=== PATIENT | male | born 1975 | race African-American/Black ===

== ENCOUNTER 2017-06-12 18:08 | Emergency (ER) | payer SELFPAY ==
[~2017-06-12] VITALS: Ht 172.7 cm; Wt 65.8 kg
[~2017-06-12 18:08] MED LIST: ACETAMINOPHEN-H1 TA2 PO; AMOXICILLIN500 MG PO; MOTRIN400 MG PO; VICODIN 5/500 505 MG PO
[2017-06-12 19:07] LABS: BASO % 0.5 % (0.0-1.0); EOS # 0.2 10*3/uL (0.0-0.4); EOS % 4.1 % (1.0-4.0); HEMATOCRIT 45.3 % (42.0-52.0); HEMOGLOBIN 15.4 g/dl (14.0-18.0); LYMPH # 2.2 10*3/uL (1.3-4.4); MEAN CELL VOLUME 93.2 fl (80.0-94.0); MEAN CORPUSCULAR HGB 31.7 pg (27.0-31.0); MEAN PLATELET VOLUME 7.7 fl (9.6-12.3); MONO # 0.6 10*3/uL (0.1-1.0); MONO % 9.8 % (3.0-9.0); NEUT # 2.7 10*3/uL (2.3-7.9); NEUT % 47.4 % (47.0-73.0); PLATELET COUNT AUTOMATED 305 10*3/uL (130-400); RED BLOOD COUNT 4.86 10*6/uL (4.50-5.90); RED CELL DISTRI WIDTH 12.1 % (0-14.5); WHITE BLOOD COUNT 5.8 10*3/uL (4.8-10.8)
[2017-06-12 19:24] LABS: ALBUMIN 3.5 gm/dl (3.1-4.5); ALKALINE PHOSPHATASE 72 U/L (45-117); BILIRUBIN, TOTAL 0.3 mg/dl (0.2-1.0); BUN 19 mg/dl (7-24); CARBON DIOXIDE 30 mmol/L (21-32); CHLORIDE 108 mmol/L (98-107); EST GLOM FILT AFRICAN AMERICAN > 60 ml/min; GLUCOSE 78 mg/dL (65-99); POTASSIUM 4.3 mmol/L (3.5-5.1); SGOT/AST 21 IU/L (3-35); SGPT/ALT 22 U/L (12-78); SODIUM 142 mmol/L (136-145); TOTAL PROTEIN 7.4 gm/dL (6.4-8.2)
[2017-06-12] MEDS ORDERED: MIRALAX POWDER17 G1 PO (20:16)
== END 2017-06-12 20:44 | disposition home or self-care (01) ==
LOC: ED 18:08
PROVIDERS: Nurse Practitioner Family
DX: K59.00 Constipation, unspecified (principal); R10.11 Right upper quadrant pain; F12.10 Cannabis abuse, uncomplicated; F17.200 Nicotine dependence, unspecified, uncomplicated

== ENCOUNTER 2018-05-26 23:02 | Emergency (ER) | payer SELFPAY ==
[~2018-05-26] VITALS: Wt 65.8 kg
[~2018-05-26 23:02] MED LIST changes: +MIRALAX POWDER17 G1 PO
[2018-05-26 23:52] LABS: BASO # 0.1 10*3/uL (0.0-0.1); BASO % 0.9 % (0.0-1.0); EOS # 0.2 10*3/uL (0.0-0.4); HEMATOCRIT 45.2 % (42.0-52.0); HEMOGLOBIN 15.4 g/dl (14.0-18.0); LYMPH # 2.5 10*3/uL (1.3-4.4); LYMPH % 44.7 % (27.0-41.0); MEAN CELL VOLUME 94.2 fl (80.0-94.0); MEAN CORPUSCULAR HGB 32.1 pg (27.0-31.0); MEAN CORPUSCULAR HGB CONC 34.1 g/dl (33.0-37.0); MEAN PLATELET VOLUME 7.6 fl (9.6-12.3); MONO # 0.5 10*3/uL (0.1-1.0); MONO % 9.3 % (3.0-9.0); NEUT # 2.3 10*3/uL (2.3-7.9); NEUT % 40.2 % (47.0-73.0); PLATELET COUNT AUTOMATED 278 10*3/uL (130-400); RED CELL DISTRI WIDTH 11.8 % (0-14.5); WHITE BLOOD COUNT 5.7 10*3/uL (4.8-10.8)
[2018-05-27] LABS: ALBUMIN 3.5 gm/dl (3.1-4.5); ALKALINE PHOSPHATASE 65 U/L (45-117); BUN 9 mg/dl (7-24); CHLORIDE 106 mmol/L (98-107); CREATININE 1.14 mg/dL (0.70-1.30); LIPASE 348 U/L (73-393); POTASSIUM 3.9 mmol/L (3.5-5.1); SGOT/AST 12 IU/L (3-35); SGPT/ALT 18 U/L (12-78); SODIUM 139 mmol/L (136-145); TOTAL PROTEIN 7.2 gm/dL (6.4-8.2)
== END 2018-05-27 01:54 | disposition home or self-care (01) ==
LOC: ED 23:02
PROVIDERS: Student in an Organized Health Care Education/Training Program
DX: R10.9 Unspecified abdominal pain (principal); R11.0 Nausea; F17.200 Nicotine dependence, unspecified, uncomplicated; Z90.49 Acquired absence of other specified parts of digestive tract

== ENCOUNTER 2018-06-10 03:18 | Inpatient (IN) | payer SELFPAY ==
[2018-06-10] VITALS (10 sets, daily range): BP systolic 95–127; BP diastolic 58–83
[~2018-06-10] VITALS: Ht 172.7 cm; Wt 60.4 kg
--- NOTE | ~2018-06-10 | CON ---
[place], [place] REPORT OF CONSULTATION NAME: GARCIA COLBERT UNIT #: [id number] ROOM: 518 DOCTOR: SADAF ROQUE MD BIRTHDATE: [birth year] DOS: 06/13/2018 HISTORY OF PRESENT ILLNESS: A 43-year-old patient who presented with chief complaint of epigastric abdominal pain with radiation to the back, nauseated, dyspepsia. Undergoing investigation. The patient had to be admitted for definitive evaluation. The patient had a panel of blood work done. Lactic acid was normal, white blood cell 6, H and H of 14 and 41. Differential diagnosis normal. INR 1.0. Comprehensive metabolic panel, GFR greater than 60. Liver function test normal. Lipase 486. Troponin normal. Hemoglobin A1c normal. CT scan of the abdomen and pelvic has been done. No evidence of inflammatory process. Ultrasound of the liver, normal right upper quadrant visualization of the gallbladder consistent with cholecystectomy site. The urine culture was negative. PAST MEDICAL HISTORY: Associated with abdominal pain, otherwise no acute history. PAST SURGICAL HISTORY: Cholecystectomy mandible surgery. SOCIAL HISTORY: Smoking, nicotine and marijuana as well. FAMILY HISTORY: Noncontributory. Diabetes and hypertension. ALLERGIES: No known medications. MEDICATIONS: None. REVIEW OF SYSTEMS: HEENT: Denies double vision, blurred vision. RESPIRATORY: Denies acute shortness of breath. CARDIOVASCULAR: Denies acute chest pain. DIGESTIVE SYSTEM: Epigastric abdominal pain, radiation to the back. PHYSICAL EXAMINATION: VITAL SIGNS: Stable. HEENT: Head normocephalic, nontraumatic. Mouth and buccal mucosa benign. NECK: Supple, no thyromegaly, no cervical lymphadenopathy. CHEST: Symmetric anatomy, equal expansion. No wheeze, no rhonchi. HEART: Normal sinus rhythm, no gallop, no murmur. ABDOMEN: Soft. No hepato-organomegaly. Bowel sounds present. Nonspecific epigastric pain. EXTREMITIES: No cyanosis, no pedal edema. NEUROLOGIC: Alert, oriented to time, place, person. IMPRESSION: Epigastric abdominal pain, etiology unknown, ruling out hiatal hernia, ruling out distal esophageal ulcer versus duodenal ulcers. PLAN AND DISCUSSION: We are going to organize an endoscopy of upper GI tract. Labs reviewed, records reviewed. Other adjunctive diagnoses as identified in past medical and surgical history. [place], [place] REPORT OF CONSULTATION NAME: GARCIA COLBERT UNIT #: [id number] ROOM: 518 DOCTOR: JUDE VARGAS,SADAF BIRTHDATE: [birth year] SADAF ROQUE MD CM:CONSTR:REPORT OF CONSULTATION 1252 06/14/18 0043 interface
--- NOTE | ~2018-06-10 | EKG ---
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
--- NOTE | ~2018-06-10 | O ---
[place], [place] OPERATIVE NOTE NAME: GARCIA COLBERT UNIT #: [id number] ROOM: 518 DOCTOR: JUDE VARGAS,SADAF BIRTHDATE: [birth year] DOS: 06/13/2018 INDICATION: The patient has presented with chief complaint of epigastric abdominal pain, radiation of the pain to the back. PROCEDURE: Today's procedure part of investigation is panendoscopy plus biopsy. PREMEDICATION: Versed and propofol. SCOPE: Olympus forward-viewing gastroscope Q10 video. REPORT: After putting the patient in left lateral position and application of lubricant to the scope, the scope was introduced. Thereafter, under direct visualization, advanced through the length of esophagus without difficulty. Gastric pouch was entered. Distal esophagitis so far noticed. Gastritis seen as I advanced the scope toward the antrum. He has a very large antral ulceration about 2.5 cm in its diameter, very deep at the same time and in the periphery of this ulcer are multiple other ulcers. Photograph biopsied. Duodenal patency assured. The patient was extubated, tolerated the procedure well. IMPRESSION: Very large and deeply scarred antral ulcer with multiple other small ulcers ____. PLAN AND DISCUSSION: This patient has to stay on Protonix 40 mg IV b.i.d., sucralfate therapy 2 grams 2 hours before meals and at bedtime. Diet should be limited to full liquid. Clinical reassessment as ulcer therapy in progress. Meanwhile, Gaviscon 15 mL p.c. meals 1 hour. SADAF ROQUE MD CM:OPRECORD:OPERATIVE NOTE 1252 0109 SADAF ROQUE MD 06/14/18 0107 interface
--- NOTE | ~2018-06-10 | PR ---
[place], [place] PROGRESS NOTE NAME: GARCIA COLBERT [facility] #: [id number] UNIT #: [id number] ROOM: 518 DOCTOR: JUDE VARGASSADAF BIRTHDATE: [birth year] DOS: 06/15/2018 GASTROINTESTINAL PROGRESS NOTE HISTORY OF PRESENT ILLNESS: This gentleman has presented with epigastric abdominal pain, endoscopically was evaluated and was found to have a very deeply-punctated ulceration at the antrum and multiple small ulcerations that were superficial at the periphery of the antrum. He has been biopsied and I have talked to Dr. Ruelas of the Pathology Department and apparently there is concern about adenocarcinoma in the tissue and therefore the patient's sample has been sent out for a second opinion. The patient has been on full liquid as well as Protonix and is interested to be discharged and I do not see any obstacle on the way for his discharge since he has been eventless in the hospital. Since it is going to take few days before the data final result of the biopsy is available to us, I have given him an appointment of more than a week in the office. By then, I am hoping to have results available. I have reviewed his CT scan of the abdomen and pelvis. There has not been any evidence of metastasis or infiltration that has been reported. His labs and records have been reviewed. There is no acute drop in his blood count; H and H of 15 and 43, white blood cell 5.4. REVIEW OF SYSTEMS: RESPIRATORY: No shortness of breath. CARDIOVASCULAR: No chest pain. DIGESTIVE SYSTEM: No hematemesis, no hematochezia. No nausea, vomiting, diarrhea. PHYSICAL EXAMINATION: VITAL SIGNS: Stable. HEENT: Head: Normocephalic, nontraumatic. Mouth and buccal mucosa benign. NECK: Supple, no thyromegaly. CHEST: Symmetric anatomy, equal expansion. No wheeze, no rhonchi. HEART: Normal sinus rhythm, no gallop, no murmur. ABDOMEN: Soft. No hepato-organomegaly. Bowel sounds present. No pulsatile mass. EXTREMITIES: No cyanosis, no pedal edema. NEUROLOGIC: Fully alert, oriented to time, place, person. IMPRESSION: Gastric ulcer, suspected for malignancy, status post biopsy. Samples are sent out for a second opinion. If there is any point of concern on the biopsy report and if there is no definitive answer, then I will consider to rebiopsy. Otherwise, I will be convinced once the data is going to be true positive regarding his adenocarcinoma and the ulcer. PLAN AND DISCUSSION: Protonix 40 mg daily, Zofran 4 mg b.i.d. p.r.n. and follow up in office in 1 week. [place], [place] PROGRESS NOTE NAME: GARCIA COLBERT UNIT #: [id number] ROOM: 518 DOCTOR: SADAF ROQUE MD BIRTHDATE: [birth year] SADAF ROQUE MD CM:JOSE [id number] SADAF ROQUE MD 06/15/18 9089 interface
[2018-06-10 03:48] LABS: BILIRUBIN 1+ (NEGATIVE); BLOOD 2+ (NEGATIVE); CLARITY SL CLOUDY (CLEAR); COLOR YELLOW (YELLOW); GLUCOSE NEGATIVE (NEGATIVE); KETONE 2+ (NEGATIVE); LEUKO ESTERASE NEGATIVE (NEGATIVE); NITRITE NEGATIVE (NEGATIVE); PH 5.5 (5.0-9.0); SPECIFIC GRAVITY >= 1.030 (1.005-1.030); UROBILINOGEN 0.2 E.U./dl (0.2-1.0)
[2018-06-10 03:55] LABS: BACTERIA 1+; EPITHELIAL CELLS 0-2; MUCOUS 1+; WBC 0-2 wbc/hpf (0-5)
[2018-06-10 04:27] LABS: BASO % 0.5 % (0.0-1.0); EOS # 0.1 10*3/uL (0.0-0.4); EOS % 2.1 % (1.0-4.0); HEMATOCRIT 41.9 % (42.0-52.0); HEMOGLOBIN 14.3 g/dl (14.0-18.0); LYMPH # 1.4 10*3/uL (1.3-4.4); LYMPH % 22.3 % (27.0-41.0); MEAN CELL VOLUME 93.5 fl (80.0-94.0); MEAN CORPUSCULAR HGB 31.9 pg (27.0-31.0); MEAN CORPUSCULAR HGB CONC 34.1 g/dl (33.0-37.0); MEAN PLATELET VOLUME 7.7 fl (9.6-12.3); MONO # 0.5 10*3/uL (0.1-1.0); MONO % 8.4 % (3.0-9.0); NEUT # 4.2 10*3/uL (2.3-7.9); NEUT % 66.5 % (47.0-73.0); PLATELET COUNT AUTOMATED 293 10*3/uL (130-400); RED BLOOD COUNT 4.48 10*6/uL (4.50-5.90); RED CELL DISTRI WIDTH 11.9 % (0-14.5); WHITE BLOOD COUNT 6.3 10*3/uL (4.8-10.8)
[2018-06-10 04:42] LABS: ALBUMIN 3.4 gm/dl (3.1-4.5); ALKALINE PHOSPHATASE 65 U/L (45-117); BUN 14 mg/dl (7-24); CHLORIDE 108 mmol/L (98-107); CREATININE 1.02 mg/dL (0.70-1.30); LIPASE 486 U/L (73-393); SGOT/AST 15 IU/L (3-35); SGPT/ALT 20 U/L (12-78); SODIUM 139 mmol/L (136-145); TOTAL PROTEIN 7.1 gm/dL (6.4-8.2); TROPONIN I < 0.015 ng/ml (<0.045)
[2018-06-10 05:02] LABS: URINE AMPHETAMINES < 1000 (1000ng/ml); URINE BARBITURATES < 200 (200ng/ml); URINE BENZODIAZEPINES < 200 (200ng/ml); URINE CANNABINOIDS (THC) > 50 (50ng/ml); URINE COCAINE < 300 (300ng/ml); URINE METHADONE < 300 (300ng/ml); URINE OPIATES < 300 (300ng/ml)
[2018-06-10 05:04] LABS: URINE PHENCYCLIDINE < 25 (25ng/ml)
[2018-06-10] MEDS ORDERED: ZANTAC 150150 MG PO (16:29)
[2018-06-11] VITALS: BP 114/76
[2018-06-11 07:07] LABS: BUN 7 mg/dl (7-24); CHLORIDE 107 mmol/L (98-107); CHOLESTEROL 146 mg/dL (<200); CREATININE 0.89 mg/dL (0.70-1.30); HDL CHOLESTEROL 30 mg/dl (40-60); LDL CHOLESTEROL 98 mg/dL (9-159); LIPASE 106 U/L (73-393); PHOSPHOROUS 2.1 mg/dL (2.5-4.9); SODIUM 140 mmol/L (136-145); TRIGLYCERIDES 88 mg/dl (<150); VLDL CHOLESTEROL 18 mg/dL (6-40)
[2018-06-11 07:34] LABS: VITAMIN D, 25-HYDROXY 11.8 ng/mL (30-100)
[2018-06-11 08:00] VITALS: BP 123/77
[2018-06-11 12:00] VITALS: BP 104/64
[2018-06-11 16:00] VITALS: BP 110/78
[2018-06-11 20:00] VITALS: BP 118/63
[2018-06-12] VITALS: BP 123/64
[2018-06-12 08:00] VITALS: BP 117/66
[2018-06-12 12:00] VITALS: BP 118/79
[2018-06-12 16:00] VITALS: BP 121/76
[2018-06-12 20:00] VITALS: BP 126/78
[2018-06-13] VITALS (9 sets, daily range): BP systolic 119–159; BP diastolic 69–86
[2018-06-13 06:10] LABS: BASO % 0.3 % (0.0-1.0); EOS # 0.1 10*3/uL (0.0-0.4); EOS % 0.7 % (1.0-4.0); HEMATOCRIT 37.7 % (42.0-52.0); HEMOGLOBIN 13.4 g/dl (14.0-18.0); LYMPH # 1.1 10*3/uL (1.3-4.4); LYMPH % 16.5 % (27.0-41.0); MEAN CELL VOLUME 90.2 fl (80.0-94.0); MEAN CORPUSCULAR HGB 32.1 pg (27.0-31.0); MEAN CORPUSCULAR HGB CONC 35.5 g/dl (33.0-37.0); MEAN PLATELET VOLUME 8.1 fl (9.6-12.3); MONO # 0.7 10*3/uL (0.1-1.0); MONO % 9.9 % (3.0-9.0); NEUT # 4.8 10*3/uL (2.3-7.9); NEUT % 72.5 % (47.0-73.0); PLATELET COUNT AUTOMATED 285 10*3/uL (130-400); RED BLOOD COUNT 4.18 10*6/uL (4.50-5.90); RED CELL DISTRI WIDTH 11.6 % (0-14.5); WHITE BLOOD COUNT 6.7 10*3/uL (4.8-10.8)
[2018-06-13 06:16] LABS: BUN 7 mg/dl (7-24); CHLORIDE 106 mmol/L (98-107); PHOSPHOROUS 1.8 mg/dL (2.5-4.9); POTASSIUM 3.7 mmol/L (3.5-5.1); SODIUM 140 mmol/L (136-145)
[2018-06-14] VITALS: BP 124/90
[2018-06-14 08:00] VITALS: BP 115/70
[2018-06-14 12:00] VITALS: BP 119/84
[2018-06-14 16:00] VITALS: BP 97/61
[2018-06-14 20:00] VITALS: BP 131/97
[2018-06-15] VITALS: BP 130/83
[2018-06-15 06:16] LABS: BASO % 0.7 % (0.0-1.0); EOS # 0.2 10*3/uL (0.0-0.4); EOS % 3.7 % (1.0-4.0); HEMATOCRIT 43.3 % (42.0-52.0); LYMPH # 1.9 10*3/uL (1.3-4.4); LYMPH % 33.6 % (27.0-41.0); MEAN CELL VOLUME 91.5 fl (80.0-94.0); MEAN CORPUSCULAR HGB 31.7 pg (27.0-31.0); MEAN CORPUSCULAR HGB CONC 34.6 g/dl (33.0-37.0); MONO # 0.7 10*3/uL (0.1-1.0); MONO % 11.7 % (3.0-9.0); NEUT # 2.8 10*3/uL (2.3-7.9); NEUT % 50.1 % (47.0-73.0); PLATELET COUNT AUTOMATED 317 10*3/uL (130-400); RED BLOOD COUNT 4.73 10*6/uL (4.50-5.90); RED CELL DISTRI WIDTH 11.4 % (0-14.5); WHITE BLOOD COUNT 5.7 10*3/uL (4.8-10.8)
[2018-06-15 06:41] LABS: BUN 7 mg/dl (7-24); CHLORIDE 104 mmol/L (98-107); POTASSIUM 3.6 mmol/L (3.5-5.1); SODIUM 141 mmol/L (136-145)
[2018-06-15 06:43] LABS: CREATININE 1.03 mg/dL (0.70-1.30); PHOSPHOROUS 2.4 mg/dL (2.5-4.9)
[2018-06-15 08:00] VITALS: BP 106/76
[2018-06-15 12:00] VITALS: BP 112/81
[2018-06-15 16:00] VITALS: BP 121/83
[2018-06-15] MEDS ORDERED: VITAMIN D5000 UNI1 PO (16:51)
[2018-06-15] MEDS ORDERED: PROTONIX40 MG PO (16:51)
[2018-06-15] MEDS ORDERED: ZOFRAN ODT4 MG SL (16:51)
== END 2018-06-15 17:10 | disposition home or self-care (01) | DRG 384 ==
LOC: ED 03:18 → 5E 05:57 → EDHOLD 05:57 → 5E 06:08
PROVIDERS: Emergency Medicine Emergency Medical Services; Internal Medicine; Student in an Organized Health Care Education/Training Program
PROC: 0DB68ZX Excision of Stomach, Via Natural or Artificial Opening Endoscopic, Diagnostic (ICD-10-PCS; principal; 2018-06-13)
DX: K25.9 Gastric ulcer, unspecified as acute or chronic, without hemorrhage or perforation (principal); E87.8 Other disorders of electrolyte and fluid balance, not elsewhere classified; E83.39 Other disorders of phosphorus metabolism; R74.8 Abnormal levels of other serum enzymes; R00.1 Bradycardia, unspecified; F12.10 Cannabis abuse, uncomplicated; E83.51 Hypocalcemia; R82.4 Acetonuria; R31.9 Hematuria, unspecified; K20.9 Esophagitis, unspecified; K29.70 Gastritis, unspecified, without bleeding; R82.71 Bacteriuria; Z90.49 Acquired absence of other specified parts of digestive tract; Z79.899 Other long term (current) drug therapy; Z82.49 Family history of ischemic heart disease and other diseases of the circulatory system; Z72.0 Tobacco use; Z71.6 Tobacco abuse counseling; Z83.3 Family history of diabetes mellitus; Z84.89 Family history of other specified conditions

== ENCOUNTER → 2018-08-22 | Day surgery (SDC) | payer SELFPAY ==
[2018-08-22] VITALS (7 sets, daily range): BP systolic 101–118; BP diastolic 65–91
[~2018-08-22] VITALS: Ht 172.7 cm; Wt 61.2 kg
[~2018-08-22] MED LIST changes: +PROTONIX40 MG PO; +VITAMIN D5000 UNI1 PO; +ZANTAC 150150 MG PO; +ZOFRAN ODT4 MG SL
--- NOTE | ~2018-08-22 | O ---
[place], [place] OPERATIVE NOTE NAME: GARCIA COLBERT UNIT #: [id number] ROOM: DOCTOR: SADAF ROQUE MD BIRTHDATE: [birth year] DOS: 08/22/2018 INDICATIONS: A 43-year-old patient who has presented with chief complaint of previous history of GI bleeding and concerned about the large antral ulceration. The patient has been treated with Protonix and there has been concern about atypia of the cells, suspected for poorly differentiated adenocarcinoma. He has been on continuous PPI therapy for the past 2 months. PROCEDURE: Today's procedure part of investigation is panendoscopy plus biopsy. PREMEDICATION: Propofol. SCOPE: Olympus forward-viewing gastroscope Q10 video. REPORT: After putting the patient in left lateral position and application of lubricant to the scope, the scope was introduced; thereafter, under direct visualization, it was advanced through the length of esophagus without difficulty into gastric pouch into duodenal bulb. As I approached toward the antrum, 4 cm proximal to the antrum, there was evidence of a partially healed ulceration. This was multiple times biopsied. The margin of the ulcer appears to be very rubbery and irregular. This is consistent with carcinoma. Duodenal bulb, second and third part within normal limits. Back to the lesion, the lesion in its diameter looks to be about 2.5 cm. The surface scarring of the ulcer has healed on Protonix; however, granulation of the base is still noticed. Photographed and biopsied. The patient was extubated, tolerated the procedure well. IMPRESSION: Ruling out adenocarcinoma. PLAN AND DISCUSSION: Should the biopsy comes back positive, the patient needs to be referred for gastrectomy, oncology management, and clinical reassessment. SADAF ROQUE MD CM:OPRECORD:OPERATIVE NOTE 1020 1150 SADAF ROQUE MD 08/22/18 1151 interface
== END | disposition home or self-care (01) ==
LOC: SDC 08-16 12:30
DX: K29.50 Unspecified chronic gastritis without bleeding (principal); K25.7 Chronic gastric ulcer without hemorrhage or perforation; K31.89 Other diseases of stomach and duodenum; K21.9 Gastro-esophageal reflux disease without esophagitis; F17.210 Nicotine dependence, cigarettes, uncomplicated; Z98.890 Other specified postprocedural states; Z90.49 Acquired absence of other specified parts of digestive tract

== ENCOUNTER 2018-11-23 13:30 | Emergency (ER) | payer MEDICAID ==
[~2018-11-23] VITALS: Ht 170.1 cm; Wt 65.8 kg
[2018-11-23] MEDS ORDERED: DECADRON4 MG PO (13:37)
[2018-11-23] MEDS ORDERED: PERCOCET 7.5-31 EACH PO (13:37)
[2018-11-23 15:23] LABS: BASO % 0.8 % (0.0-1.0); EOS # 0.1 10*3/uL (0.0-0.4); EOS % 1.3 % (1.0-4.0); HEMATOCRIT 40.9 % (42.0-52.0); HEMOGLOBIN 13.7 g/dl (14.0-18.0); LYMPH # 1.2 10*3/uL (1.3-4.4); LYMPH % 30.8 % (27.0-41.0); MEAN CELL VOLUME 94.9 fl (80.0-94.0); MEAN CORPUSCULAR HGB 31.8 pg (27.0-31.0); MEAN CORPUSCULAR HGB CONC 33.5 g/dl (33.0-37.0); MEAN PLATELET VOLUME 7.8 fl (9.6-12.3); MONO # 0.5 10*3/uL (0.1-1.0); MONO % 11.7 % (3.0-9.0); NEUT # 2.1 10*3/uL (2.3-7.9); NEUT % 55.1 % (47.0-73.0); PLATELET COUNT AUTOMATED 266 10*3/uL (130-400); RED BLOOD COUNT 4.31 10*6/uL (4.50-5.90); RED CELL DISTRI WIDTH 12.1 % (0-14.5); WHITE BLOOD COUNT 3.9 10*3/uL (4.8-10.8)
[2018-11-23 15:38] LABS: ALBUMIN 3.1 gm/dl (3.1-4.5); ALKALINE PHOSPHATASE 71 U/L (45-117); BUN 11 mg/dl (7-24); CHLORIDE 104 mmol/L (98-107); POTASSIUM 4.3 mmol/L (3.5-5.1); SGOT/AST 23 IU/L (3-35); SGPT/ALT 55 U/L (12-78); SODIUM 139 mmol/L (136-145); TOTAL PROTEIN 7.2 gm/dL (6.4-8.2)
[2018-11-23] MEDS ORDERED: AMOXICILLIN500 M2 PO (16:20)
[2018-11-23] MEDS ORDERED: CLEOCIN HCL300 MG PO (16:20)
== END 2018-11-23 16:25 | disposition home or self-care (01) ==
LOC: ED 13:30
PROVIDERS: Emergency Medicine
DX: K04.7 Periapical abscess without sinus (principal); F17.210 Nicotine dependence, cigarettes, uncomplicated; Z79.899 Other long term (current) drug therapy

== ENCOUNTER 2019-05-07 18:25 | Emergency (ER) | payer OTHER ==
[~2019-05-07] VITALS: Ht 172.7 cm; Wt 56.7 kg
--- NOTE | ~2019-05-07 | EKG ---
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 RESP : 1975 Requested By: LUCI MEJIA Order Number: [id number] Reading MD: Denise Lennon MD Measurements Intervals [place] Rate: 89 P: 81 [place]: 123 QRS: 37 QRSD: 83 T: 55 QT: 334 QTc: 407 Interpretive Statements Sinus rhythm Right atrial enlargement Left ventricular hypertrophy Lateral infarct, acute Anterior ST elevation, probably due to LVH Compared to ECG 06/10/2018 04:10:01 Left ventricular hypertrophy now present Myocardial infarct finding now present ST (T wave) deviation still present Electronically Signed On 05-08-2019 12:29:11 PDT by Denise Lennon MD CM:EKGRPT:ELECTROCARDIOGRAM REPORT 12 1229 LUCI MEJIA EPIPHANY DRAFT REPORT LUCI MEJIA
[~2019-05-07 18:25] MED LIST changes: +AMOXICILLIN500 M2 PO; +CLEOCIN HCL300 MG PO; +DECADRON4 MG PO; +PERCOCET 7.5-31 EACH PO
[2019-05-07 18:49] LABS: HEMATOCRIT 42.2 % (42.0-52.0); HEMOGLOBIN 13.9 g/dl (14.0-18.0); MEAN CELL VOLUME 97.5 fl (80.0-94.0); MEAN CORPUSCULAR HGB 32.1 pg (27.0-31.0); MEAN CORPUSCULAR HGB CONC 32.9 g/dl (33.0-37.0); PLATELET COUNT AUTOMATED 177 10*3/uL (130-400); RED BLOOD COUNT 4.33 10*6/uL (4.50-5.90); RED CELL DISTRI WIDTH 14.9 % (0-14.5); WHITE BLOOD COUNT 14.2 10*3/uL (4.8-10.8)
[2019-05-07 19:05] LABS: ALBUMIN 3.9 gm/dl (3.1-4.5); ALKALINE PHOSPHATASE 189 U/L (45-117); BUN 21 mg/dl (7-24); CHLORIDE 106 mmol/L (98-107); CREATININE 1.07 mg/dL (0.70-1.30); POTASSIUM 3.7 mmol/L (3.5-5.1); SGOT/AST 16 IU/L (3-35); SGPT/ALT 25 U/L (12-78); SODIUM 137 mmol/L (136-145); TOTAL PROTEIN 7.8 gm/dL (6.4-8.2)
[2019-05-07 19:06] LABS: TROPONIN I < 0.015 ng/ml (<0.045)
[2019-05-07 19:17] LABS: BURR CELLS FEW; OVALOCYTES FEW; TOTAL CELLS COUNTED 100 #CELLS
[2019-05-07 19:18] LABS: ACANTHOCYTES FEW; PLATELET SUFFICIENCY NORMAL (NORMAL)
[2019-05-07 22:02] LABS: BILIRUBIN NEGATIVE (NEGATIVE); BLOOD TRACE-INTACT (NEGATIVE); CLARITY SL CLOUDY (CLEAR); COLOR YELLOW (YELLOW); GLUCOSE NEGATIVE (NEGATIVE); KETONE 1+ (NEGATIVE); LEUKO ESTERASE NEGATIVE (NEGATIVE); NITRITE NEGATIVE (NEGATIVE); SPECIFIC GRAVITY 1.025 (1.005-1.030); UROBILINOGEN 0.2 E.U./dl (0.2-1.0)
[2019-05-07 22:43] LABS: WBC 0-2 wbc/hpf (0-5)
== END 2019-05-07 23:01 | disposition home or self-care (01) ==
LOC: ED 18:25
PROVIDERS: Nurse Practitioner
DX: E86.0 Dehydration (principal); C16.9 Malignant neoplasm of stomach, unspecified; D72.829 Elevated white blood cell count, unspecified; R10.32 Left lower quadrant pain; F12.90 Cannabis use, unspecified, uncomplicated; F17.210 Nicotine dependence, cigarettes, uncomplicated; Z90.49 Acquired absence of other specified parts of digestive tract; Z98.890 Other specified postprocedural states; Z79.899 Other long term (current) drug therapy

== ENCOUNTER 2019-05-20 19:34 | Emergency (ER) | payer OTHER ==
[~2019-05-20] VITALS: Ht 170.1 cm; Wt 52.2 kg
--- NOTE | ~2019-05-20 | EKG ---
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1975 Requested By: DONTA CARPENTER Order Number: [id number] Reading MD: Donald De La Rosa MD Measurements Intervals [place] Rate: 83 P: 76 [place]: 114 QRS: 41 QRSD: 85 T: 56 QT: 347 QTc: 408 Interpretive Statements Sinus rhythm Borderline short [place] interval Biatrial enlargement Compared to ECG 05/07/2019 19:13:21 Left ventricular hypertrophy no longer present Myocardial infarct finding no longer present ST (T wave) deviation no longer present Electronically Signed On 05-21-2019 9:13:29 PDT by Donald De La Rosa MD CM:EKGRPT:ELECTROCARDIOGRAM REPORT 99 2 DONTA ROMERO DRAFT REPORT DONTA CARPENTER DO
[2019-05-20 20:19] LABS: BASO % 1.2 % (0.0-1.0); EOS % 0.6 % (1.0-4.0); HEMATOCRIT 39.2 % (42.0-52.0); HEMOGLOBIN 12.9 g/dl (14.0-18.0); LYMPH % 29.8 % (27.0-41.0); MEAN CORPUSCULAR HGB 32.6 pg (27.0-31.0); MEAN CORPUSCULAR HGB CONC 32.9 g/dl (33.0-37.0); MEAN PLATELET VOLUME 8.9 fl (9.6-12.3); MONO # 0.1 10*3/uL (0.1-1.0); MONO % 2.5 % (3.0-9.0); NEUT # 2.1 10*3/uL (2.3-7.9); NEUT % 64.7 % (47.0-73.0); PLATELET COUNT AUTOMATED 167 10*3/uL (130-400); RED BLOOD COUNT 3.96 10*6/uL (4.50-5.90); RED CELL DISTRI WIDTH 15.8 % (0-14.5); WHITE BLOOD COUNT 3.3 10*3/uL (4.8-10.8)
[2019-05-20 20:50] LABS: ALBUMIN 3.3 gm/dl (3.1-4.5); ALKALINE PHOSPHATASE 101 U/L (45-117); BUN 19 mg/dl (7-24); CHLORIDE 109 mmol/L (98-107); CREATININE 0.82 mg/dL (0.70-1.30); LIPASE 71 U/L (73-393); POTASSIUM 4.1 mmol/L (3.5-5.1); SGOT/AST 18 IU/L (3-35); SGPT/ALT 22 U/L (12-78); SODIUM 140 mmol/L (136-145); TOTAL PROTEIN 7.1 gm/dL (6.4-8.2)
[2019-05-20 20:53] LABS: TROPONIN I < 0.015 ng/ml (<0.045)
[2019-05-20 21:06] LABS: ACT PARTIAL THROMBO TIME 24.3 SECONDS (20.0-32.1)
[2019-05-20 23:42] LABS: BILIRUBIN NEGATIVE (NEGATIVE); BLOOD TRACE-INTACT (NEGATIVE); CLARITY CLEAR (CLEAR); COLOR YELLOW (YELLOW); GLUCOSE NEGATIVE (NEGATIVE); KETONE 1+ (NEGATIVE); LEUKO ESTERASE NEGATIVE (NEGATIVE); NITRITE NEGATIVE (NEGATIVE); PH 6.5 (5.0-9.0); UROBILINOGEN 0.2 E.U./dl (0.2-1.0)
[2019-05-20 23:52] LABS: WBC 0-2 wbc/hpf (0-5)
== END 2019-05-21 00:30 | disposition home or self-care (01) ==
LOC: ED 19:34
PROVIDERS: Student in an Organized Health Care Education/Training Program
DX: R10.84 Generalized abdominal pain (principal); R53.1 Weakness; F17.210 Nicotine dependence, cigarettes, uncomplicated; Z79.2 Long term (current) use of antibiotics; Z79.899 Other long term (current) drug therapy; Z90.49 Acquired absence of other specified parts of digestive tract

== ENCOUNTER 2020-01-30 | Emergency (ER) | payer SELFPAY ==
[~2020-01-30] VITALS: Wt 56.7 kg
[2020-01-30 00:48] LABS: BASO % 0.5 % (0.0-1.0); EOS # 0.2 10*3/uL (0.0-0.4); EOS % 3.4 % (1.0-4.0); HEMATOCRIT 41.5 % (42.0-52.0); LYMPH # 2.6 10*3/uL (1.3-4.4); LYMPH % 46.5 % (27.0-41.0); MEAN CELL VOLUME 99.3 fl (80.0-94.0); MEAN CORPUSCULAR HGB 33.5 pg (27.0-31.0); MEAN CORPUSCULAR HGB CONC 33.7 g/dl (33.0-37.0); MONO # 0.5 10*3/uL (0.1-1.0); MONO % 9.6 % (3.0-9.0); NEUT # 2.2 10*3/uL (2.3-7.9); NEUT % 39.8 % (47.0-73.0); PLATELET COUNT AUTOMATED 260 10*3/uL (130-400); RED BLOOD COUNT 4.18 10*6/uL (4.50-5.90); RED CELL DISTRI WIDTH 12.5 % (0-14.5); WHITE BLOOD COUNT 5.5 10*3/uL (4.8-10.8)
[2020-01-30 01:05] LABS: ALBUMIN 3.4 gm/dl (3.1-4.5); ALKALINE PHOSPHATASE 86 U/L (45-117); BUN 16 mg/dl (7-24); CHLORIDE 112 mmol/L (98-107); CREATININE 0.97 mg/dL (0.70-1.30); POTASSIUM 4.4 mmol/L (3.5-5.1); SGOT/AST 16 IU/L (3-35); SGPT/ALT 19 U/L (12-78); SODIUM 143 mmol/L (136-145); TOTAL PROTEIN 6.8 gm/dL (6.4-8.2)
[2020-01-30 01:23] LABS: BILIRUBIN NEGATIVE (NEGATIVE); BLOOD NEGATIVE (NEGATIVE); CLARITY CLEAR (CLEAR); COLOR YELLOW (YELLOW); GLUCOSE NEGATIVE (NEGATIVE); KETONE NEGATIVE (NEGATIVE); LEUKO ESTERASE NEGATIVE (NEGATIVE); NITRITE NEGATIVE (NEGATIVE); UROBILINOGEN 0.2 E.U./dl (0.2-1.0)
[2020-01-30 01:55] LABS: WBC 0-2 wbc/hpf (0-5)
== END 2020-01-30 02:29 | disposition home or self-care (01) ==
LOC: ED
PROVIDERS: Emergency Medicine
DX: R10.32 Left lower quadrant pain (principal); R05 Cough; Z79.899 Other long term (current) drug therapy; Z79.2 Long term (current) use of antibiotics; Z87.891 Personal history of nicotine dependence

== ENCOUNTER 2020-12-20 10:02 | Emergency (ER) | payer OTHER ==
[~2020-12-20] VITALS: Wt 63.5 kg
[2020-12-20 10:59] LABS: BASO # 0.1 10*3/uL (0.0-0.1); EOS # 0.1 10*3/uL (0.0-0.4); EOS % 1.6 % (1.0-4.0); HEMATOCRIT 43.9 % (42.0-52.0); LYMPH # 1.7 10*3/uL (1.3-4.4); LYMPH % 34.4 % (27.0-41.0); MEAN CELL VOLUME 96.3 fl (80.0-94.0); MEAN CORPUSCULAR HGB 32.9 pg (27.0-31.0); MEAN CORPUSCULAR HGB CONC 34.2 g/dl (33.0-37.0); MEAN PLATELET VOLUME 7.7 fl (9.6-12.3); MONO # 0.5 10*3/uL (0.1-1.0); MONO % 10.7 % (3.0-9.0); NEUT # 2.6 10*3/uL (2.3-7.9); NEUT % 52.3 % (47.0-73.0); PLATELET COUNT AUTOMATED 256 10*3/uL (130-400); RED BLOOD COUNT 4.56 10*6/uL (4.50-5.90); RED CELL DISTRI WIDTH 12.3 % (0-14.5); WHITE BLOOD COUNT 4.9 10*3/uL (4.8-10.8)
[2020-12-20 11:10] LABS: BILIRUBIN Negative (Negative); BLOOD Negative (Negative); CLARITY Clear (Clear); COLOR Yellow (Yellow); GLUCOSE Negative (Negative); KETONE 1+ (Negative); LEUKO ESTERASE Negative (Negative); NITRITE Negative (Negative); PH 6.5 (4.5-8.0)
[2020-12-20 11:17] LABS: ALBUMIN 3.9 gm/dl (3.1-4.5); ALKALINE PHOSPHATASE 92 U/L (45-117); BUN 12 mg/dl (7-24); CHLORIDE 111 mmol/L (98-107); CREATININE 0.93 mg/dL (0.70-1.30); POTASSIUM 4.2 mmol/L (3.5-5.1); SGOT/AST 23 IU/L (3-35); SGPT/ALT 19 U/L (12-78); SODIUM 143 mmol/L (136-145); TOTAL PROTEIN 7.7 gm/dL (6.4-8.2)
[2020-12-20 11:18] LABS: ETHYL ALCOHOL < 3.0 mg/dl (<3)
[2020-12-20 11:21] LABS: URINE AMPHETAMINES < 1000 (1000ng/ml); URINE BARBITURATES < 200 (200ng/ml); URINE BENZODIAZEPINES < 200 (200ng/ml); URINE CANNABINOIDS (THC) > 50 (50ng/ml); URINE COCAINE < 300 (300ng/ml); URINE METHADONE < 300 (300ng/ml); URINE OPIATES > 300 (300ng/ml)
[2020-12-20 11:23] LABS: BACTERIA TRACE; EPITHELIAL CELLS 0-2; MUCOUS 1+; WBC 0-2 wbc/hpf (0-5)
[2020-12-20 11:36] LABS: URINE PHENCYCLIDINE < 25 (25ng/ml)
== END 2020-12-20 12:27 | disposition home or self-care (01) ==
LOC: ED 10:02
PROVIDERS: Emergency Medicine
DX: F43.21 Adjustment disorder with depressed mood (principal); Z79.899 Other long term (current) drug therapy; Z90.49 Acquired absence of other specified parts of digestive tract; Z20.822 Contact with and (suspected) exposure to COVID-19

== ENCOUNTER 2021-02-09 02:59 | Emergency (ER) | payer OTHER ==
[~2021-02-09] VITALS: Ht 172.7 cm; Wt 61.2 kg
[2021-02-09 04:12] LABS: BILIRUBIN Negative (Negative); BLOOD Negative (Negative); CLARITY Clear (Clear); COLOR Yellow (Yellow); GLUCOSE Negative (Negative); KETONE Negative (Negative); LEUKO ESTERASE Negative (Negative); NITRITE Negative (Negative); SPECIFIC GRAVITY <= 1.005 (1.001-1.030); UROBILINOGEN 0.2 E.U./dl (0.0-1.0)
[2021-02-09 04:21] LABS: URINE AMPHETAMINES < 1000 (1000ng/ml); URINE BARBITURATES < 200 (200ng/ml); URINE BENZODIAZEPINES < 200 (200ng/ml); URINE CANNABINOIDS (THC) > 50 (50ng/ml); URINE COCAINE < 300 (300ng/ml); URINE METHADONE < 300 (300ng/ml); URINE OPIATES < 300 (300ng/ml)
[2021-02-09 04:26] LABS: URINE PHENCYCLIDINE < 25 (25ng/ml)
[2021-02-09 04:28] LABS: BASO # 0.1 10*3/uL (0.0-0.1); BASO % 0.9 % (0.0-1.0); EOS # 0.1 10*3/uL (0.0-0.4); EOS % 1.1 % (1.0-4.0); HEMATOCRIT 45.3 % (42.0-52.0); LYMPH # 1.5 10*3/uL (1.3-4.4); LYMPH % 27.4 % (27.0-41.0); MEAN CORPUSCULAR HGB 33.2 pg (27.0-31.0); MEAN CORPUSCULAR HGB CONC 34.2 g/dl (33.0-37.0); MEAN PLATELET VOLUME 7.7 fl (9.6-12.3); MONO # 0.5 10*3/uL (0.1-1.0); MONO % 8.2 % (3.0-9.0); NEUT # 3.5 10*3/uL (2.3-7.9); NEUT % 62.2 % (47.0-73.0); PLATELET COUNT AUTOMATED 303 10*3/uL (130-400); RED BLOOD COUNT 4.67 10*6/uL (4.50-5.90); RED CELL DISTRI WIDTH 12.4 % (0-14.5); WHITE BLOOD COUNT 5.6 10*3/uL (4.8-10.8)
[2021-02-09 04:40] LABS: ACT PARTIAL THROMBO TIME 27.1 SECONDS (20.0-32.1)
[2021-02-09 04:46] LABS: ALBUMIN 3.7 gm/dl (3.1-4.5); ALKALINE PHOSPHATASE 94 U/L (45-117); BUN 14 mg/dl (7-24); CHLORIDE 108 mmol/L (98-107); CREATININE 1.15 mg/dL (0.70-1.30); LIPASE 97 U/L (73-393); POTASSIUM 4.1 mmol/L (3.5-5.1); SGOT/AST 14 IU/L (3-35); SGPT/ALT 24 U/L (12-78); SODIUM 138 mmol/L (136-145); TOTAL PROTEIN 7.9 gm/dL (6.4-8.2)
[2021-02-09 05:05] LABS: BACTERIA TRACE; WBC 0-2 wbc/hpf (0-5)
== END 2021-02-09 06:08 | disposition home or self-care (01) ==
LOC: ED 02:59
PROVIDERS: Hospitalist
DX: K66.0 Peritoneal adhesions (postprocedural) (postinfection) (principal); F17.210 Nicotine dependence, cigarettes, uncomplicated; Z85.028 Personal history of other malignant neoplasm of stomach; Z90.49 Acquired absence of other specified parts of digestive tract; Z98.890 Other specified postprocedural states

== ENCOUNTER 2021-05-03 14:51 | Emergency (ER) | payer MEDICARE, MEDICAID ==
[~2021-05-03] VITALS: Ht 170.1 cm; Wt 56.7 kg
[2021-05-03 16:15] LABS: BILIRUBIN Negative (Negative); BLOOD Trace-Lysed (Negative); CLARITY Clear (Clear); COLOR Dark Yellow (Yellow); GLUCOSE Negative (Negative); KETONE Trace (Negative); LEUKO ESTERASE Negative (Negative); NITRITE Negative (Negative); PH 5.5 (4.5-8.0); SPECIFIC GRAVITY >= 1.030 (1.001-1.030)
[2021-05-03 16:20] LABS: BACTERIA TRACE; EPITHELIAL CELLS 0-2; MUCOUS TRACE; RBC 0-2 rbc/hpf (0-2)
[2021-05-03] MEDS ORDERED: FLAGYL500 MG PO (16:54)
[2021-05-03] MEDS ORDERED: DOXYCYCLINE100 M3 PO (16:54)
== END 2021-05-03 17:15 | disposition home or self-care (01) ==
LOC: ED 14:51
PROVIDERS: Physician Assistant
DX: F17.210 Nicotine dependence, cigarettes, uncomplicated (principal); Z90.49 Acquired absence of other specified parts of digestive tract; Z90.89 Acquired absence of other organs; Z20.2 Contact with and (suspected) exposure to infections with a predominantly sexual mode of transmission

== ENCOUNTER 2024-08-16 15:54 | Emergency (ER) | payer MEDICARE ==
[~2024-08-16] VITALS: Ht 172.7 cm; Wt 59.0 kg
[~2024-08-16 15:54] MED LIST changes: +DOXYCYCLINE100 M3 PO; +FLAGYL500 MG PO
[2024-08-16] MEDS ORDERED: SODIUM CHLORIDE 0.9% 1,000 ML IV ONE (16:40)
[2024-08-16] MEDS ORDERED: HYDROmorphONE Hydrochloride 1 MG/ML SYR IV ONE (16:40)
[2024-08-16] MEDS ORDERED: Ondansetron Hydrochloride 4 MG/2 ML VIAL IV ONE (16:40)
[2024-08-16 16:56] LABS: BASO % 0.3 % (0.0-1.0); EOS # 0.1 10*3/uL (0.0-0.4); EOS % 1.6 % (1.0-4.0); HEMATOCRIT 46.8 % (42.0-52.0); LYMPH # 1.9 10*3/uL (1.3-4.4); LYMPH % 27.6 % (27.0-41.0); MEAN CELL VOLUME 96.1 fl (80.0-94.0); MEAN CORPUSCULAR HGB 32.4 pg (27.0-31.0); MEAN CORPUSCULAR HGB CONC 33.8 g/dl (33.0-37.0); MEAN PLATELET VOLUME 7.5 fl (9.6-12.3); MONO # 0.6 10*3/uL (0.1-1.0); MONO % 8.1 % (3.0-9.0); NEUT # 4.4 10*3/uL (2.3-7.9); NEUT % 62.3 % (47.0-73.0); PLATELET COUNT AUTOMATED 313 10*3/uL (130-400); RED BLOOD COUNT 4.87 10*6/uL (4.50-5.90); RED CELL DISTRI WIDTH 12.6 % (0-14.5)
[2024-08-16] MEDS ORDERED: IOHEXOL 300 MG/ML 100 ML VIAL IV ONE (17:05)
[2024-08-16 17:15] LABS: BILIRUBIN Negative (Negative); BLOOD Negative (Negative); CLARITY Clear (Clear); COLOR Yellow (Yellow); GLUCOSE Negative (Negative); KETONE Negative (Negative); LEUKO ESTERASE Negative (Negative); NITRITE Negative (Negative); PH 6.5 (4.5-8.0); UROBILINOGEN 0.2 E.U./dl (0.0-1.0)
[2024-08-16 17:16] LABS: ALKALINE PHOSPHATASE 93 U/L (46-116); BUN 8 mg/dl (9-23); CHLORIDE 107 mmol/L (98-107); LIPASE 26 U/L (12-53); POTASSIUM 4.1 mmol/L (3.4-5.1); SGPT/ALT 16 U/L (5-49); TOTAL PROTEIN 7.7 gm/dL (6.0-8.0)
[2024-08-16 17:31] LABS: EPITHELIAL CELLS 0-2; RBC 0-2 rbc/hpf (0-2); WBC 0-2 wbc/hpf (0-5)
[2024-08-16] MEDS ORDERED: HYDROmorphONE Hydrochloride 0.5 MG/0.5 ML SYRINGE IV ONE (19:45)
[2024-08-16] MEDS ORDERED: MORPHINE Sulfate 2 MG/ML SYR IV ONE (21:40)
[2024-08-17] MEDS ORDERED: MORPHINE Sulfate 2 MG/ML SYR IV ONE (01:30)
== END 2024-08-17 01:40 | disposition short-term general hospital (02) ==
LOC: ED 15:54
PROVIDERS: Nurse Practitioner Family
DX: F17.210 Nicotine dependence, cigarettes, uncomplicated (principal); Z85.028 Personal history of other malignant neoplasm of stomach; Z88.6 Allergy status to analgesic agent; Z98.890 Other specified postprocedural states; Z90.49 Acquired absence of other specified parts of digestive tract; K56.609 Unspecified intestinal obstruction, unspecified as to partial versus complete obstruction; K63.9 Disease of intestine, unspecified

== ENCOUNTER 2024-08-31 22:10 | Emergency (ER) | payer MEDICARE ==
[~2024-08-31] VITALS: Ht 172.7 cm; Wt 54.4 kg
[2024-08-31] MEDS ORDERED: HYDROmorphONE Hydrochloride 0.5 MG/0.5 ML SYRINGE IV ONE (22:40)
[2024-08-31] MEDS ORDERED: IOHEXOL 300 MG/ML 100 ML VIAL IV ONE (22:45)
[2024-08-31 23:02] LABS: BASO # 0.1 10*3/uL (0.0-0.1); BASO % 0.6 % (0.0-1.0); EOS # 0.1 10*3/uL (0.0-0.4); HEMATOCRIT 40.5 % (42.0-52.0); MEAN CELL VOLUME 98.8 fl (80.0-94.0); MEAN CORPUSCULAR HGB 32.7 pg (27.0-31.0); MEAN CORPUSCULAR HGB CONC 33.1 g/dl (33.0-37.0); MEAN PLATELET VOLUME 7.4 fl (9.6-12.3); MONO # 0.4 10*3/uL (0.1-1.0); MONO % 4.2 % (3.0-9.0); NEUT # 7.3 10*3/uL (2.3-7.9); NEUT % 82.9 % (47.0-73.0); PLATELET COUNT AUTOMATED 679 10*3/uL (130-400); RED CELL DISTRI WIDTH 12.6 % (0-14.5); WHITE BLOOD COUNT 8.9 10*3/uL (4.8-10.8)
[2024-08-31 23:16] LABS: ACT PARTIAL THROMBO TIME 25.5 SECONDS (20.0-32.1)
[2024-08-31 23:22] LABS: BUN 17 mg/dl (9-23); CHLORIDE 114 mmol/L (98-107); LIPASE 41 U/L (12-53); POTASSIUM 3.9 mmol/L (3.4-5.1)
[2024-09-01] MEDS ORDERED: SODIUM CHLORIDE 0.9% 1,000 ML IV ONE ×2 (01:15→05:25)
[2024-09-01] MEDS ORDERED: HYDROmorphONE Hydrochloride 0.5 MG/0.5 ML SYRINGE IV ONE ×2 (01:35→05:20)
[2024-09-01] MEDS ORDERED: Ondansetron Hydrochloride 4 MG/2 ML VIAL IV ONE (01:35)
== END 2024-09-01 07:48 | disposition short-term general hospital (02) ==
LOC: ED 22:10
PROVIDERS: Internal Medicine
DX: K56.609 Unspecified intestinal obstruction, unspecified as to partial versus complete obstruction (principal); R11.2 Nausea with vomiting, unspecified; F17.290 Nicotine dependence, other tobacco product, uncomplicated; F12.90 Cannabis use, unspecified, uncomplicated; Z88.6 Allergy status to analgesic agent; Z90.49 Acquired absence of other specified parts of digestive tract